=== PATIENT | female | born 1970 | race Caucasian/White ===

== ENCOUNTER 2016-09-19 11:13 | Emergency (ER) | payer OTHER | END 2016-09-19 14:09 | disposition home or self-care (01) | LOC: ER 11:13 | DX: M54.31 Sciatica, right side (principal); J43.9 Emphysema, unspecified; M06.9 Rheumatoid arthritis, unspecified; F17.210 Nicotine dependence, cigarettes, uncomplicated; Z79.899 Other long term (current) drug therapy; Z79.52 Long term (current) use of systemic steroids; Z88.8 Allergy status to other drugs, medicaments and biological substances; Z90.710 Acquired absence of both cervix and uterus | CPT/HCPCS: 96372; J2550 ==

== ENCOUNTER 2016-10-01 12:20 | Emergency (ER) | payer OTHER | END 2016-10-01 13:20 | disposition home or self-care (01) | LOC: ER 12:20 | DX: B02.9 Zoster without complications (principal); F17.210 Nicotine dependence, cigarettes, uncomplicated; Z79.899 Other long term (current) drug therapy; Z88.8 Allergy status to other drugs, medicaments and biological substances ==